=== PATIENT | male | born 1965 | race Caucasian/White ===

== ENCOUNTER 2020-07-17 20:55 | Inpatient (IN) | payer OTHER, SELFPAY ==
[~2020-07-17] VITALS: Ht 170.2 cm; Wt 78.1 kg
[2020-07-17 20:59] VITALS: Ht 170.2 cm; Wt 78.1 kg
[2020-07-17 22:07] LABS: BASOPHIL % 0.3 % (0.2-1.5); PLATELET COUNT 212 x10^3mcL (152-348); RED CELL DISTRIBUTION WIDTH 13.9 % (12.1-16.2)
[2020-07-17 22:28] LABS: rbc morphology (normal/abnorm) NORMAL (NORMAL)
[2020-07-17 22:32] LABS: CALCIUM 9.2 mg/dL (8.5-10.1); CARBON DIOXIDE 24.1 mmol/L (21-32); CHLORIDE SERUM 93 mmol/L (98-107); CREATININE SERUM 1.5 mg/dL (0.7-1.3); GFR1 51 mL/min; GLUCOSE SERUM 112 mg/dL (74-106); POTASSIUM SERUM 3.8 mmol/L (3.5-5.1); SODIUM SERUM 130 mmol/L (136-145)
[2020-07-17 22:36] LABS: ALKALINE PHOSPHATASE 73 U/L (46-116); ALT/SGPT 204 U/L (16-63); AST/SGOT 185 U/L (15-37); BILIRUBIN TOTAL 0.5 mg/dL (0.20-1.00); LACTIC DEHYDROGENASE (LDH) 334 U/L (100-190)
[2020-07-17 22:38] LABS: ALBUMIN 3.3 g/dL (3.4-5.0); C REACTIVE PROTEIN 18.7 mg/dL (<=0.9)
[2020-07-18 03:59] LABS: microscopic required? NO
[2020-07-18 04:28] LABS: UA SPECIFIC GRAVITY <=1.005 (1.005-1.035); urine erythrocyte NEGATIVE (NEGATIVE)
[2020-07-18 04:56] VITALS: BP 117/82
[2020-07-18 15:51] VITALS: BP 130/91
[2020-07-18 16:14] VITALS: BP 130/91
[2020-07-18 21:01] VITALS: BP 134/91
[2020-07-19 04:11] VITALS: BP 131/86
[2020-07-19 06:39] LABS: BASOPHIL % 0.2 % (0.2-1.5); PLATELET COUNT 283 x10^3mcL (152-348); RED CELL DISTRIBUTION WIDTH 13.6 % (12.1-16.2)
[2020-07-19 07:29] LABS: ALKALINE PHOSPHATASE 59 U/L (46-116); ALT/SGPT 209 U/L (16-63); AST/SGOT 168 U/L (15-37); BILIRUBIN TOTAL 0.27 mg/dL (0.20-1.00); CALCIUM 8.8 mg/dL (8.5-10.1); CARBON DIOXIDE 27.8 mmol/L (21-32); CHLORIDE SERUM 104 mmol/L (98-107); CREATININE SERUM 1.3 mg/dL (0.7-1.3); GFR1 > 60 mL/min; GLUCOSE SERUM 132 mg/dL (74-106); POTASSIUM SERUM 4.5 mmol/L (3.5-5.1); SODIUM SERUM 141 mmol/L (136-145); TOTAL PROTEIN, SERUM 6.6 g/dL (6.4-8.2)
[2020-07-19 07:33] LABS: ALBUMIN 2.7 g/dL (3.4-5.0)
[2020-07-19 08:11] VITALS: BP 129/83
[2020-07-19 11:52] LABS: BILIRUBIN DIRECT 0.14 mg/dL (0.0-0.2); BILIRUBIN TOTAL 0.24 mg/dL (0.20-1.00); TOTAL PROTEIN, SERUM 6.6 g/dL (6.4-8.2)
[2020-07-19 11:56] LABS: ALBUMIN 2.7 g/dL (3.4-5.0)
[2020-07-19 12:05] VITALS: BP 127/83
[2020-07-19 16:13] VITALS: BP 127/77
[2020-07-19 18:52] LABS: C REACTIVE PROTEIN 7.8 mg/dL (<=0.9); MAGNESIUM 2.2 mg/dL (1.8-2.4)
[2020-07-19 20:34] VITALS: BP 103/65
[2020-07-20 05:50] VITALS: BP 104/56
[2020-07-20 08:56] VITALS: BP 103/64
[2020-07-20 09:22] LABS: ALKALINE PHOSPHATASE 63 U/L (46-116); ALT/SGPT 237 U/L (16-63); AST/SGOT 136 U/L (15-37); BILIRUBIN TOTAL 0.28 mg/dL (0.20-1.00); CALCIUM 8.5 mg/dL (8.5-10.1); CARBON DIOXIDE 28.6 mmol/L (21-32); CHLORIDE SERUM 107 mmol/L (98-107); CREATININE SERUM 1.2 mg/dL (0.7-1.3); GFR1 > 60 mL/min; GLUCOSE SERUM 97 mg/dL (74-106); POTASSIUM SERUM 4.6 mmol/L (3.5-5.1); SODIUM SERUM 144 mmol/L (136-145); TOTAL PROTEIN, SERUM 6.3 g/dL (6.4-8.2)
[2020-07-20 09:23] LABS: ALBUMIN 2.5 g/dL (3.4-5.0)
[2020-07-20 09:43] LABS: BILIRUBIN DIRECT 0.19 mg/dL (0.0-0.2); BILIRUBIN TOTAL 0.26 mg/dL (0.20-1.00); TOTAL PROTEIN, SERUM 6.3 g/dL (6.4-8.2)
[2020-07-20 09:49] LABS: ALBUMIN 2.5 g/dL (3.4-5.0)
[2020-07-20 13:19] VITALS: BP 115/61
[2020-07-20 17:13] VITALS: BP 118/70
[2020-07-20 20:17] VITALS: BP 120/83
[2020-07-21 04:35] VITALS: BP 127/76
[2020-07-21 08:08] LABS: BILIRUBIN DIRECT 0.27 mg/dL (0.0-0.2); BILIRUBIN TOTAL 0.43 mg/dL (0.20-1.00)
[2020-07-21 08:09] LABS: ALBUMIN 2.5 g/dL (3.4-5.0); TOTAL PROTEIN, SERUM 5.7 g/dL (6.4-8.2)
[2020-07-21 09:00] LABS: ALKALINE PHOSPHATASE 56 U/L (46-116); ALT/SGPT 206 U/L (16-63); AST/SGOT 93 U/L (15-37); BILIRUBIN TOTAL 0.4 mg/dL (0.20-1.00); CALCIUM 7.9 mg/dL (8.5-10.1); CARBON DIOXIDE 25.2 mmol/L (21-32); CHLORIDE SERUM 106 mmol/L (98-107); CREATININE SERUM 1.2 mg/dL (0.7-1.3); GFR1 > 60 mL/min; GLUCOSE SERUM 112 mg/dL (74-106); POTASSIUM SERUM 3.4 mmol/L (3.5-5.1); SODIUM SERUM 141 mmol/L (136-145)
[2020-07-21 09:01] LABS: ALBUMIN 2.5 g/dL (3.4-5.0); TOTAL PROTEIN, SERUM 5.9 g/dL (6.4-8.2)
[2020-07-21 09:27] VITALS: BP 115/73
[2020-07-21 11:54] LABS: MAGNESIUM 2.1 mg/dL (1.8-2.4)
[2020-07-21 12:20] VITALS: BP 112/79
[2020-07-21 17:57] VITALS: BP 119/79
[2020-07-21 21:55] VITALS: BP 131/89
[2020-07-22 06:29] VITALS: BP 122/84
[2020-07-22 07:59] LABS: BASOPHIL % 0.1 % (0.2-1.5); RED CELL DISTRIBUTION WIDTH 13.5 % (12.1-16.2)
[2020-07-22 08:35] LABS: ALKALINE PHOSPHATASE 59 U/L (46-116); ALT/SGPT 181 U/L (16-63); AST/SGOT 73 U/L (15-37); BILIRUBIN TOTAL 0.4 mg/dL (0.20-1.00); CALCIUM 8.4 mg/dL (8.5-10.1); CARBON DIOXIDE 26.3 mmol/L (21-32); CHLORIDE SERUM 106 mmol/L (98-107); CREATININE SERUM 1.2 mg/dL (0.7-1.3); GFR1 > 60 mL/min; GLUCOSE SERUM 90 mg/dL (74-106); MAGNESIUM 2.3 mg/dL (1.8-2.4); POTASSIUM SERUM 4.2 mmol/L (3.5-5.1); SODIUM SERUM 143 mmol/L (136-145)
[2020-07-22 08:37] LABS: PLATELET COUNT 446 x10^3mcL (152-348)
[2020-07-22 08:45] LABS: ALBUMIN 2.6 g/dL (3.4-5.0); TOTAL PROTEIN, SERUM 6.1 g/dL (6.4-8.2)
[2020-07-22 08:49] VITALS: BP 117/71
[2020-07-22 12:51] VITALS: BP 98/62
[2020-07-22 16:28] VITALS: BP 122/82
[2020-07-22 20:38] VITALS: BP 148/86
[2020-07-23 05:38] VITALS: BP 104/60
[2020-07-23 08:01] LABS: BASOPHIL % 0.1 % (0.2-1.5); RED CELL DISTRIBUTION WIDTH 13.5 % (12.1-16.2)
[2020-07-23 08:23] VITALS: BP 125/87
[2020-07-23 08:25] LABS: ALKALINE PHOSPHATASE 58 U/L (46-116); ALT/SGPT 159 U/L (16-63); AST/SGOT 60 U/L (15-37); BILIRUBIN TOTAL 0.4 mg/dL (0.20-1.00); CALCIUM 7.9 mg/dL (8.5-10.1); CARBON DIOXIDE 24.6 mmol/L (21-32); CHLORIDE SERUM 107 mmol/L (98-107); CREATININE SERUM 1.2 mg/dL (0.7-1.3); GFR1 > 60 mL/min; GLUCOSE SERUM 96 mg/dL (74-106); MAGNESIUM 2.2 mg/dL (1.8-2.4); POTASSIUM SERUM 4.1 mmol/L (3.5-5.1); SODIUM SERUM 144 mmol/L (136-145); TOTAL PROTEIN, SERUM 6.2 g/dL (6.4-8.2)
[2020-07-23 08:28] LABS: ALBUMIN 2.6 g/dL (3.4-5.0)
[2020-07-23] MEDS ORDERED: DECADRON6 MG PO (09:54)
[2020-07-23] MEDS ORDERED: ELIQUIS2.5 MG PO (09:55)
[2020-07-23 12:12] LABS: PLATELET COUNT 540 x10^3mcL (152-348)
== END 2020-07-23 12:10 | disposition home or self-care (01) | DRG 177 ==
LOC: ED 20:55 → DU 07-18 00:20
PROVIDERS: Emergency Medicine; Hospitalist; ADMIT Hospitalist; ATTEND Hospitalist
PROC: XW033E5 Introduction of Remdesivir Anti-infective into Peripheral Vein, Percutaneous Approach, New Technology Group 5 (ICD-10-PCS; 2020-07-18)
PROC: XW13325 Transfusion of Convalescent Plasma (Nonautologous) into Peripheral Vein, Percutaneous Approach, New Technology Group 5 (ICD-10-PCS; principal; 2020-07-22)
DX: U07.1 COVID-19 (principal); J12.89 Other viral pneumonia; J96.01 Acute respiratory failure with hypoxia; D68.59 Other primary thrombophilia
CPT/HCPCS: 36600; 83880; 85378; 87804; G0378; J0456; J0696; J1100; J1644; J1650; J3535; J7030; J7050; J7060; U0003